=== PATIENT | male | born 1960 | race African-American/Black ===

== ENCOUNTER 2017-11-12 20:39 | Emergency (ER) | payer MEDICAID ==
[~2017-11-12] VITALS: Ht 167.6 cm; Wt 82.0 kg
[~2017-11-12 20:39] MED LIST: GEMF600T3 PO; KEPP500 PO; LACT10SO44 PO; LEVE500T19 PO; PHEN100C12 PO
[2017-11-13 01:18] LABS: BASOPHILS % 0.7 % (0.0-2.0); EOSINOPHILS % 3.3 % (0.0-5.0); HEMATOCRIT. 42.2 % (42.0-52.0); HEMOGLOBIN. 14.8 g/dL (14.0-18.0); LYMPHOCYTES % 13.7 % (20.0-50.0); MEAN CORPUSCULAR HEMOGLOBIN 31.4 pg (28.0-32.0); MEAN PLATELET VOLUME 7.8 fl (7.4-10.4); MONOCYTES % 4.5 % (2.0-8.0); NEUTROPHILS % 77.8 % (40.0-76.0); PLATELET 294 x1000/uL (130-400); RED BLOOD CELL COUNT 4.69 mill/uL (4.7-6.1)
[2017-11-13 01:19] LABS: CHLORIDE 108 mEq/L (98-107)
[2017-11-13 01:19] LABS: *AMPHETAMINES SCREEN URINE NEGATIVE (NEGATIVE); *BARBITURATES SCREEN URINE NEGATIVE (NEGATIVE); *BENZODIAZEPINES SCREEN URINE NEGATIVE (NEGATIVE); *COCAINE SCREEN URINE NEGATIVE (NEGATIVE)
[2017-11-13 01:20] LABS: CANNABINOID URINE SCREEN NEGATIVE (NEGATIVE); METHADONE URINE SCREEN NEGATIVE (NEGATIVE); OPIATES URINE SCREEN NEGATIVE (NEGATIVE); PHENCYCLIDINE URINE SCREEN NEGATIVE (NEGATIVE)
[2017-11-13 01:23] LABS: ETHANOL BLOOD < 10 mg/dL
[2017-11-13 04:22] VITALS: BP 135/93
== END 2017-11-13 05:26 | disposition home or self-care (01) ==
LOC: ER 22:25
DX: Z00.00 Encounter for general adult medical examination without abnormal findings (principal); I10 Essential (primary) hypertension; R56.9 Unspecified convulsions
CPT/HCPCS: 36415; 80048; 80305; 85025; 99284; G0482